=== PATIENT | female | born 1955 | race Caucasian/White ===

== ENCOUNTER → 2016-06-06 | Outpatient (CLI) | payer BC ==
[~2016-06-06] MED LIST: DULO30CA PO; HYDR200T3 PO; LEVO25TA5 PO; LYRI100C10 PO; MOBI7.5T10 PO; TRAM50TA2 PO
--- NOTE | 2016-06-06 09:11 | REPMRS ---
Patient History The patient states she has not had a clinical breast exam in over a year. Patient is postmenopausal. Family history of prostate cancer in father. Digital Woman Screen Mammo: June 06, 2016 - Exam #: [id number] Bilateral CC and MLO view(s) were taken. Technologist: Svetlana Ray, Technologist Prior study comparison: March 23, 2015, digital woman screen mammo performed at [facility]. May 23, 2014, digital woman screen mammo performed at [facility]. March 09, 2012, digital woman screen mammo performed at [facility] to [facility]. FINDINGS: There are scattered fibroglandular densities. There has been no change in the appearance of the mammogram from the prior studies. There is a mild amount of scattered fibroglandular density which is fairly symmetric. There is no interval development of dominant mass, architectural distortion, or clustered microcalcification suggestive of malignancy. ASSESSMENT: BI-RADS/ACR category 1 mammogram. Negative. Recommendation Routine screening mammogram in 1 year (for women over age 40). This mammogram was interpreted with the aid of an FDA-approved computer-aided dectection system. Electronically Signed By: Abhay Boland MD 06/06/16 0911
--- NOTE | 2016-06-07 09:05 | DEXA ---
AP SPINE L1 - L4 1.088 -0.9 0.1 LT FEMUR TOTAL 0.891 -0.9 -0.2 RT FEMUR TOTAL 0.890 -0.9 -0.2 TOTAL BODY TOTAL OTHER DUAL FEMUR FRAX* ASSESSMENT Risk factors: History of adult fracture, premature menopause, tobacco user. 10 year probability of fracture Major osteoporotic fracture 13.2 % Hip fracture 1.7 % COMMENTS: Normal bone densitometry of the spine. There is low bone density of the hips. The density of the spine is increased 3.3% since 01/25/2010. The density of the left hip has decreased 1.8% since 01/25/2010. The density of the right hip has decreased 5.7% since 01/25/2010. FOLLOW-UP: Recommendation for the next bone density exam: 2 years. ARLEN
== END ==
LOC: M WHC 08:28
PROVIDERS: ATTEND Nurse Practitioner Women's Health
DX: Z12.39 Encounter for other screening for malignant neoplasm of breast (principal); R29.890 Loss of height; N95.1 Menopausal and female climacteric states
CPT/HCPCS: 77080; G0202

== ENCOUNTER → 2017-11-20 | Outpatient (CLI) | payer BC | LOC: M WHC 09:53 | DX: Z12.31 Encounter for screening mammogram for malignant neoplasm of breast (principal); Z78.0 Asymptomatic menopausal state | CPT/HCPCS: 77067 ==

== ENCOUNTER → 2019-02-01 | Outpatient (CLI) | payer BC ==
[~2019-02-01] MED LIST changes: -DULO30CA PO; +DULO30CA9 PO; -LYRI100C10 PO; +MOBI4TAB PO; -MOBI7.5T10 PO; +PREG100CA PO
--- NOTE | 2019-02-02 15:31 | DEXA ---
AP SPINE L1 - L4 1.062 -1.1 0.5 LT FEMUR TOTAL 0.876 -1.0 0.1 LT NECK 0.941 -0.7 0.7 RT FEMUR TOTAL 0.870 -1.1 0.1 RT NECK 0.953 -0.6 0.8 TOTAL BODY TOTAL OTHER COMMENTS: Normal bone densitometry of the hips. There is low bone density of the spine. The decreased density of the spine does represent a significant change. The decreased density of the left hip does not represent a significant change. The decreased density of the right hip does represent a significant change. The density of the spine has increased 0.9% since the initial exam on 01/25/2010. The spine density has decreased 2.4% since the most recent exam on 06/06/2016. The density of the left hip has decreased 3.4% since the initial exam on 01/25/2010. The density of the left hip has decreased 1.7% since the most recent exam on 06/06/2016. The density of the right hip has decreased 7.8% since the initial exam on 01/25/2010. The density of the right hip has decreased 2.2% since most recent exam on 06/06/2016. FOLLOW-UP: Recommendation for the next bone density exam: 2 years. ARLEN
== END ==
LOC: M WHC 07:53
PROVIDERS: ATTEND Family Medicine
DX: M81.0 Age-related osteoporosis without current pathological fracture (principal)

== ENCOUNTER → 2019-02-01 | Outpatient (CLI) | payer BC ==
--- NOTE | 2019-02-01 09:04 | REPMRS ---
Patient History The patient states she had a clinical breast exam in 08/2018. Patient is postmenopausal. Family history of prostate cancer in father, breast cancer at age 50 or over in maternal aunt. No Hormone Replacement Therapy 3D TOMOSYNTHESIS WAS PERFORMED. The [facility] lifetime risk for breast cancer is 6.0%. Digital Woman Screen Mammo: February 01, 2019 - Exam #: [id number] Bilateral CC and MLO view(s) were taken. Technologist: Kim Johnson Technologist Prior study comparison: November 20, 2017, bilateral digital woman screen mammo performed at [facility] [employer] [facility]. June 06, 2016, digital woman screen mammo performed at [facility] [employer] [facility]. FINDINGS: There are scattered fibroglandular densities. There has been no change in the appearance of the mammogram from the prior studies. There is a mild amount of residual fibroglandular tissue which is fairly symmetric. There is no interval development of dominant mass, architectural distortion, or clustered microcalcification suggestive of malignancy. Assessment: BI-RADS/ACR category 1 mammogram. Negative Mammogram. Recommendation Routine screening mammogram in 1 year (for women over age 40). This mammogram was interpreted with the aid of an FDA-approved computer-aided dectection system. Electronically Signed By: Isaac Maya MD 02/01/19 0903
== END ==
LOC: M WHC 07:42
PROVIDERS: ATTEND Nurse Practitioner Women's Health
DX: Z12.31 Encounter for screening mammogram for malignant neoplasm of breast (principal)

== ENCOUNTER → 2025-01-18 | Outpatient (CLI) | payer MEDICARE, BC ==
[~2025-01-18] MED LIST changes: -HYDR200T3 PO; +HYDR200T46 PO; +PREG-35 PO; -PREG100CA PO
== END ==
LOC: M WHC 10:07
PROVIDERS: ATTEND Nurse Practitioner Family
DX: Z12.31 Encounter for screening mammogram for malignant neoplasm of breast (principal); R92.313 Mammographic fatty tissue density, bilateral breasts